=== PATIENT | male | born 1995 | race Caucasian/White ===

== ENCOUNTER 2020-04-16 18:44 | Emergency (ER) | payer OTHER ==
[~2020-04-16] VITALS: Ht 177.8 cm; Wt 63.5 kg
[2020-04-16 20:03] VITALS: Ht 177.8 cm; Wt 63.5 kg
[2020-04-16 20:07] VITALS: BP 121/79
== END 2020-04-16 20:07 | disposition other institution (70) ==
LOC: ED 18:44
DX: Z02.89 Encounter for other administrative examinations (principal)